=== PATIENT | female | born 1995 | race Caucasian/White ===

== ENCOUNTER 2019-04-15 17:36 | Emergency (ER) | payer MEDICAID, OTHER ==
[~2019-04-15] VITALS: Ht 157.5 cm; Wt 63.5 kg
[2019-04-15 17:55] VITALS: BP 116/71
--- NOTE | 2019-04-15 18:10 | NUR ---
BIB SELF. AAO X4 C/O PELVIC INTERMITTENT, SHARP, 7/10, PAIN RADIATING TO RIGHT THIGH X 2 DAYS. PT WAS REFERRED FROM [facility] FOR EVALUATION OF IUD STATUS. PER PT, SHE HAD IUD INSERTION DONE ON , 04/12/19. PT AFEBRILE AT THIS TIME, PT HAS DISCOMFORT URINATING. PT STATES FOUL VAGINAL DISCHARGE. VSS; PATIENT POSITIONED FOR COMFORT; HOB ELEVATED; BEDRAILS UP X1; BED DOWN. ER MD MADE AWARE OF PT STATUS.
[2019-04-15] MEDS ORDERED: LORazepam 1 MG TAB PO ONE (18:25)
[2019-04-15] MEDS ORDERED: KETOROLAC 60 MG/2 ML VIAL IM ONE (18:25)
[2019-04-15 19:01] LABS: APPEARANCE,URINE CLEAR (CLEAR); BILIRUBIN,URINE 1+ (NEGATIVE); BLOOD, URINE 3+ (NEGATIVE); COLOR,URINE YELLOW (YELLOW); LEUKOCYTE ESTERASE ,URINE TRACE (NEGATIVE); NITRITE, URINE NEGATIVE (NEGATIVE); UGLUCOSE NEGATIVE (NEGATIVE)
--- NOTE | 2019-04-15 19:02 | NUR ---
Jt arango in ED - 04/15/19 at 1906 by CROW PT STATES SOMEONE WILL COME AND PICK HER UP. ANTIVENT GIVEN TO PT.
--- NOTE | 2019-04-15 19:02 | NUR ---
PT STATES SOMEONE WILL COME AND PICK HER UP. ATIVAN GIVEN TO PT.
[2019-04-15 19:06] LABS: BARBITURATE, URINE NEG. ng/ml (NEG <=200); BENZODIAZEPINE, URINE NEG. ng/mL (NEG <=200); CANNABINOID, URINE NEG. ng/mL (NEG <=50); COCAINE, URINE NEG. ng/mL (NEG <=300); OPIATE, URINE NEG. ng/mL (NEG <=2000); PHENCYCLIDINE SCREEN,URINE NEG. ng/mL (NEG <=25)
--- NOTE | 2019-04-15 19:18 | NUR ---
REPORT GIVEN TO STEVE NAILS. CARE TRANSFERED AT THIS TIME.
[2019-04-15 19:20] LABS: RBC,URINE 0-5 /HPF (0-5); WBC,URINE 0-5 /HPF (0-5)
[2019-04-15 20:35] VITALS: BP 114/73
== END 2019-04-15 20:35 | disposition home or self-care (01) ==
LOC: MED 17:36
DX: R10.2 Pelvic and perineal pain (principal); Z97.5 Presence of (intrauterine) contraceptive device
CPT/HCPCS: 76830; 80305; 81001; 81025; 96372; 99284; J1885; Q0092